=== PATIENT | male | born 1960 | race Caucasian/White ===

== ENCOUNTER 2023-04-24 17:18 | Inpatient (IN) | payer OTHER, BC ==
[~2023-04-24 17:18] MED LIST: Iopamidol-370 76% 500 ML MDV (1 ML CHARGE) ONE
[2023-04-24] MEDS ORDERED: fentaNYL 50 mcg/mL 1 mL Vial ONE ×5 (17:38→21:39)
[2023-04-24 17:41] LABS: #Basophils 0.1 thou/uL (0.0-0.2); #Eosinphils 0.4 thou/uL (0.0-0.7); #Monocytes 0.7 thou/uL (0.11-0.59); #Neutrophils 7.2 thou/uL (1.40-6.50); %Basophils 0.6 % (0.0-1.0); %Eosinophils 3.4 % (0.0-10.0); %Lymphocytes 24.1 % (21.0-51.0); %Neutrophils 65.3 % (42.0-75.0); Hemoglobin 13.6 g/dL (14.0-18.0); Mean Corpuscular HGB CONC 34.3 g/dL (32.0-36.0); Mean Corpuscular Hemoglobin 31.9 pg (27.0-31.0); Mean Platelet Volume 10.1 fL (7.4-10.4); Platelet Count 283 10x3/uL (130-400); RBC Distribution Width 12.3 % (11.5-14.5); Red Blood Cell (RBC) Count 4.26 mill/uL (4.70-6.10)
[2023-04-24] MEDS ORDERED: Boostrix 0.5 ML (Tdap) VIAL (>/=7 yrs of age) ONE (17:48)
[2023-04-24 17:55] LABS: ALT (SGPT) 42 U/L (8-55); AST (SGOT) 44 U/L (5-34); Albumin 4.2 g/dL (3.4-4.8); Alkaline Phosphatase 82 U/L (40-110); Anion Gap 14 mmol/L (10-20); BUN (Urea Nitrogen) 24 mg/dL (8.4-25.7); Bilirubin, Total 0.2 mg/dL (0.2-1.2); Calc. Creatinine Clearance 0 mL/min (70-130); Calcium 9.3 mg/dL (7.8-10.44); Carbon Dioxide 21 mmol/L (23-31); Chloride 108 mmol/L (98-107); Estimated GFR 55; Globulin 2.7 g/dL (2.4-3.5); Glucose 140 mg/dL (80-115); Potassium 4.3 mmol/L (3.5-5.1); Protein, Total 6.9 g/dL (5.8-8.1); Prothrombin Time 13.9 sec (12.0-14.7); Sodium 139 mmol/L (136-145)
[2023-04-24] MEDS ORDERED: Lidocaine 1% PF 5 ML VIAL ONE ×2 (18:03→19:11)
[2023-04-24] MEDS ORDERED: NOREPINEPHRINE 8 MG/250 ML-D5W 250 ML ONE (18:03)
[2023-04-24] MEDS ORDERED: Dextrose 50% Abboject 50 ML SYRINGE SLOW IVP PRN (18:24)
[2023-04-24] MEDS ORDERED: Ondansetron ODT 4 MG TAB PO PRN (18:24)
[2023-04-24] MEDS ORDERED: Dextrose 5% in Water 1,000 ML IV PRN (18:24)
[2023-04-24] MEDS ORDERED: Glucagon 1 MG/ML KIT IM PRN (18:24)
[2023-04-24] MEDS ORDERED: hydrALAZINE 20 MG/ML VIAL SLOW IVP PRN (18:24)
[2023-04-24] MEDS ORDERED: Morphine 2 MG/ML VIAL SLOW IVP PRN (18:24)
[2023-04-24] MEDS ORDERED: Ondansetron PF 4 MG/2 ML Vial IVP PRN (18:24)
[2023-04-24] MEDS ORDERED: Morphine 4 MG/ML VIAL SLOW IVP PRN (18:24)
[2023-04-24 18:27] LABS: PTT 22.6 sec (22.9-36.1)
[2023-04-24] MEDS ORDERED: Ipratropium/Albuterol 3 ML NEB NEB PRN (18:32)
[2023-04-24] MEDS ORDERED: Melatonin 3 MG TAB PO PRN (18:34)
[2023-04-24] MEDS ORDERED: Norepinephrine 4 MG/4 ML VIAL ONE (18:43)
[2023-04-24] MEDS ORDERED: Fentanyl 250 MCG/5 ML VIAL ONE (18:43)
[2023-04-24] MEDS ORDERED: HYDROmorphone 0.5 MG/0.5 ML SYRINGE ONE (18:43)
[2023-04-24] MEDS ORDERED: PROPOFOL 200 MG/20 ML VIAL ONE (19:11)
[2023-04-24] MEDS ORDERED: diphenhydrAMINE 50 MG/ML VIAL ONE (19:11)
[2023-04-24] MEDS ORDERED: Ondansetron PF 4 MG/2 ML Vial ONE (19:11)
[2023-04-24] MEDS ORDERED: Rocuronium Bromide 10 MG/ML (10ML VIAL) ONE (19:11)
[2023-04-24] MEDS ORDERED: Succinylcholine 200 MG/10 ml SYRINGE FS ONE (19:11)
[2023-04-24] MEDS ORDERED: SUGAMMADEX SODIUM 200 MG/2 ML VIAL ONE (20:52)
[2023-04-24] MEDS ORDERED: Ondansetron HCl/PF 4 MG/2 ML Vial IVP PRN (21:16)
[2023-04-24] MEDS ORDERED: HYDROmorphone 2 MG/ML VIAL SLOW IVP PRN (21:16)
[2023-04-24] MEDS ORDERED: Ketorolac Tromethamine 30 MG/ML VIAL IVP PRN (21:16)
[2023-04-24] MEDS ORDERED: CEFAZOLIN 2 GM in Sodium Chloride 0.9% 100 ML IVPB SCH (22:00)
[2023-04-24] MEDS: traMADol HCl 50 MG TAB PO SCH (23:37)
[2023-04-25] MEDS: Gabapentin 300 MG CAP PO SCH ×4 (00:22→21:18)
[2023-04-25] MEDS: Acetaminophen 500 MG TAB PO SCH ×4 (00:29→17:57)
[2023-04-25] MEDS: Famotidine/PF 20 mg/2ml Vial SLOW IVP SCH ×3 (00:30→21:19)
[2023-04-25] MEDS: Sodium Chloride 0.9% 1,000 ML IV SCH ×4 (00:30→21:18)
[2023-04-25] MEDS: traMADol HCl 50 MG TAB PO SCH ×2 (00:45→09:08)
[2023-04-25] MEDS: Cyclobenzaprine 10 MG TAB PO PRN ×2 (03:26→21:18)
[2023-04-25] MEDS: CEFAZOLIN 2 GM in Sodium Chloride 0.9% 100 ML IVPB SCH ×2 (03:28→11:29)
[2023-04-25 04:45] VITALS: BMI 23.9
[2023-04-25 08:54] LABS: #Basophils 0.1 thou/uL (0.0-0.2); #Monocytes 0.9 thou/uL (0.11-0.59); #Neutrophils 7.7 thou/uL (1.40-6.50); %Basophils 0.9 % (0.0-1.0); %Eosinophils 0.1 % (0.0-10.0); %Lymphocytes 7.2 % (21.0-51.0); %Monocytes 9.8 % (0.0-10.0); %Neutrophils 81.6 % (42.0-75.0); Mean Corpuscular HGB CONC 31.7 g/dL (32.0-36.0); Mean Corpuscular Hemoglobin 32.2 pg (27.0-31.0); Mean Platelet Volume 11.6 fL (7.4-10.4); RBC Distribution Width 13.6 % (11.5-14.5); Red Blood Cell (RBC) Count 3.29 mill/uL (4.70-6.10); White Blood Cell (WBC) Count 9.5 10x3/uL (4.8-10.8)
[2023-04-25 08:59] LABS: Mean Corpuscular Volume 101.5 fl (78.0-98.0); Platelet Count 148 10x3/uL (130-400)
[2023-04-25] MEDS ORDERED: Lactated Ringer's 500 ML IV SCH (09:30)
[2023-04-25] MEDS ORDERED: HYDROcodone/Acetaminophen 5/325 mg Tablet PO PRN (11:59)
[2023-04-25] MEDS: HYDROcodone/Acetaminophen 5/325 mg Tablet PO SCH ×3 (12:17→17:56)
[2023-04-25 12:54] LABS: Hemoglobin 10.6 g/dL (14.0-18.0)
[2023-04-25 13:48] LABS: Anion Gap 9 mmol/L (10-20); BUN (Urea Nitrogen) 13 mg/dL (8.4-25.7); Calc. Creatinine Clearance 76 mL/min (70-130); Calcium 7.5 mg/dL (7.8-10.44); Carbon Dioxide 24 mmol/L (23-31); Chloride 107 mmol/L (98-107); Estimated GFR 92; Glucose 104 mg/dL (80-115); Potassium 4.1 mmol/L (3.5-5.1); Sodium 136 mmol/L (136-145)
[2023-04-26] MEDS: Acetaminophen 500 MG TAB PO SCH ×2 (00:54→05:39)
[2023-04-26] MEDS: HYDROcodone/Acetaminophen 5/325 mg Tablet PO SCH ×2 (00:54→05:39)
[2023-04-26 04:52] LABS: #Basophils 0.1 thou/uL (0.0-0.2); #Eosinphils 0.2 thou/uL (0.0-0.7); #Monocytes 0.7 thou/uL (0.11-0.59); #Neutrophils 5.3 thou/uL (1.40-6.50); %Basophils 1.1 % (0.0-1.0); %Eosinophils 2.4 % (0.0-10.0); %Monocytes 9.8 % (0.0-10.0); %Neutrophils 73.3 % (42.0-75.0); Hemoglobin 9.7 g/dL (14.0-18.0); Mean Corpuscular HGB CONC 33.8 g/dL (32.0-36.0); Mean Corpuscular Hemoglobin 32.1 pg (27.0-31.0); Mean Platelet Volume 10.4 fL (7.4-10.4); Platelet Count 154 10x3/uL (130-400); RBC Distribution Width 13.2 % (11.5-14.5); Red Blood Cell (RBC) Count 3.02 mill/uL (4.70-6.10); White Blood Cell (WBC) Count 7.2 10x3/uL (4.8-10.8)
[2023-04-26 05:10] LABS: Chloride 114 mmol/L (98-107); Potassium 3.9 mmol/L (3.5-5.1); Sodium 132 mmol/L (136-145)
[2023-04-26 05:19] LABS: BUN (Urea Nitrogen) 12 mg/dL (8.4-25.7); Calc. Creatinine Clearance 71 mL/min (70-130); Carbon Dioxide 22 mmol/L (23-31); Estimated GFR 84; Glucose 103 mg/dL (80-115)
[2023-04-26] MEDS: Sodium Chloride 0.9% 1,000 ML IV SCH ×2 (05:38→12:33)
[2023-04-26] MEDS ORDERED: Ketorolac Tromethamine 30 MG/ML VIAL IVP SCH (09:00)
[2023-04-26] MEDS: Gabapentin 300 MG CAP PO SCH ×3 (09:17→21:12)
[2023-04-26] MEDS: Famotidine/PF 20 mg/2ml Vial SLOW IVP SCH ×2 (09:18→21:12)
[2023-04-26] MEDS: Tamsulosin HCl 0.4 MG CAP PO SCH (09:18)
[2023-04-26] MEDS: Acetaminophen/Codeine 30-300mg Tablet PO SCH ×3 (09:19→21:12)
[2023-04-26] MEDS: Ketorolac Tromethamine 30 MG/ML VIAL IVP SCH ×2 (17:51→21:13)
[2023-04-26] MEDS ORDERED: Sodium Chloride 0.9% 1,000 ML IV SCH (20:00)
[2023-04-27] MEDS: Acetaminophen/Codeine 30-300mg Tablet PO SCH ×5 (02:31→23:53)
[2023-04-27] MEDS: Ketorolac Tromethamine 30 MG/ML VIAL IVP SCH ×2 (05:12→09:05)
[2023-04-27 05:47] LABS: #Eosinphils 0.3 thou/uL (0.0-0.7); #Monocytes 0.5 thou/uL (0.11-0.59); #Neutrophils 3.2 thou/uL (1.40-6.50); %Basophils 0.8 % (0.0-1.0); %Lymphocytes 20.2 % (21.0-51.0); %Monocytes 10.2 % (0.0-10.0); %Neutrophils 62.4 % (42.0-75.0); Hemoglobin 7.9 g/dL (14.0-18.0); Mean Corpuscular HGB CONC 33.2 g/dL (32.0-36.0); Mean Corpuscular Hemoglobin 31.3 pg (27.0-31.0); Mean Corpuscular Volume 94.4 fl (78.0-98.0); Mean Platelet Volume 10.4 fL (7.4-10.4); Platelet Count 142 10x3/uL (130-400); RBC Distribution Width 12.7 % (11.5-14.5); Red Blood Cell (RBC) Count 2.52 mill/uL (4.70-6.10); White Blood Cell (WBC) Count 5.2 10x3/uL (4.8-10.8)
[2023-04-27 06:19] LABS: Anion Gap 11 mmol/L (10-20); BUN (Urea Nitrogen) 10 mg/dL (8.4-25.7); Calc. Creatinine Clearance 83 mL/min (70-130); Calcium 7.7 mg/dL (7.8-10.44); Carbon Dioxide 22 mmol/L (23-31); Chloride 106 mmol/L (98-107); Estimated GFR 97; Glucose 98 mg/dL (80-115); Potassium 4.4 mmol/L (3.5-5.1); Sodium 135 mmol/L (136-145)
[2023-04-27] MEDS: Gabapentin 300 MG CAP PO SCH ×3 (09:05→19:56)
[2023-04-27] MEDS: Tamsulosin HCl 0.4 MG CAP PO SCH (09:05)
[2023-04-27] MEDS: Famotidine/PF 20 mg/2ml Vial SLOW IVP SCH ×2 (09:05→19:57)
[2023-04-27] MEDS: Acetaminophen 325 MG TAB PO SCH ×3 (13:02→23:53)
[2023-04-27] MEDS: Ibuprofen 200 MG TAB PO SCH ×2 (14:34→23:52)
[2023-04-27] MEDS: Cyclobenzaprine 10 MG TAB PO PRN (19:56)
[2023-04-28] MEDS: Ibuprofen 200 MG TAB PO SCH (05:40)
[2023-04-28] MEDS: Acetaminophen 325 MG TAB PO SCH ×2 (05:41→11:46)
[2023-04-28] MEDS: Acetaminophen/Codeine 30-300mg Tablet PO SCH ×2 (05:44→11:48)
[2023-04-28 06:33] LABS: #Eosinphils 0.3 thou/uL (0.0-0.7); #Monocytes 0.5 thou/uL (0.11-0.59); #Neutrophils 3.1 thou/uL (1.40-6.50); %Basophils 0.4 % (0.0-1.0); %Eosinophils 6.9 % (0.0-10.0); %Lymphocytes 15.2 % (21.0-51.0); %Monocytes 10.5 % (0.0-10.0); %Neutrophils 66.4 % (42.0-75.0); Mean Corpuscular HGB CONC 33.9 g/dL (32.0-36.0); Mean Corpuscular Hemoglobin 31.1 pg (27.0-31.0); Mean Corpuscular Volume 91.8 fl (78.0-98.0); Mean Platelet Volume 9.8 fL (7.4-10.4); Platelet Count 201 10x3/uL (130-400); RBC Distribution Width 12.4 % (11.5-14.5); Red Blood Cell (RBC) Count 2.57 mill/uL (4.70-6.10); White Blood Cell (WBC) Count 4.7 10x3/uL (4.8-10.8)
[2023-04-28] MEDS: Gabapentin 300 MG CAP PO SCH (10:01)
[2023-04-28] MEDS: Tamsulosin HCl 0.4 MG CAP PO SCH (10:02)
[2023-04-28] MEDS: Famotidine/PF 20 mg/2ml Vial SLOW IVP SCH (10:02)
[2023-04-28 12:04] VITALS: BP 103/67; TEMP 97.8
== END 2023-04-28 14:10 | DRG 481 ==
LOC: ERS 17:18 → SDC/OP 19:14 → SURG B 19:15
PROVIDERS: ADMIT Surgery; ATTEND Surgery
PROC: 0QSB04Z Reposition Right Lower Femur with Internal Fixation Device, Open Approach (ICD-10-PCS; principal; 2023-04-24)
PROC: 0YQF0ZZ Repair Right Knee Region, Open Approach (ICD-10-PCS; 2023-04-24)
PROC: 0HQAXZZ Repair Inguinal Skin, External Approach (ICD-10-PCS; 2023-04-24)
PROC: 0W9930Z Drainage of Right Pleural Cavity with Drainage Device, Percutaneous Approach (ICD-10-PCS; 2023-04-24)
PROC: 30233N1 Transfusion of Nonautologous Red Blood Cells into Peripheral Vein, Percutaneous Approach (ICD-10-PCS; 2023-04-24)
PROC: 3E033XZ Introduction of Vasopressor into Peripheral Vein, Percutaneous Approach (ICD-10-PCS; 2023-04-24)
DX: S72.401A Unspecified fracture of lower end of right femur, initial encounter for closed fracture (principal); D62 Acute posthemorrhagic anemia; J93.9 Pneumothorax, unspecified; S22.41XA Multiple fractures of ribs, right side, initial encounter for closed fracture; V89.2XXA Person injured in unspecified motor-vehicle accident, traffic, initial encounter; S81.011A Laceration without foreign body, right knee, initial encounter; S31.113A Laceration without foreign body of abdominal wall, right lower quadrant without penetration into peritoneal cavity, initial encounter
CPT/HCPCS: 36415; 36430; 70450; 71045; 71260; 72125; 72170; 74177; 80048; 80053; 83605; 85025; 85610; 85730; 86850; 86900; 86901; 90471; 90715; 96374; 96375; 96376; C1713; G0390; J1170; J1200; J1650; J1885; J2270; J2405; J2704; J3010; J3490; J7050; J7120; P9016; Q9967; S0028